=== PATIENT | male | born 1990 | race Hispanic/Latino ===

== ENCOUNTER 2019-04-10 09:43 | Emergency (ER) | payer SELFPAY ==
[2019-04-10 10:12] LABS: Absolute Lymphocytes (CBC) 1.7 K/uL (0.7-4.9); Basophils % 0.5 % (0-1.3); Hematocrit 40.1 % (39.6-49.0); Lymphocytes % 17.9 % (15.3-44.8); MPV 9.4 fL (7.6-11.3)
[2019-04-10] MEDS ORDERED: MORPHINE 4 MG/ML SYR ONE (10:13)
[2019-04-10] MEDS ORDERED: ONDANSETRON 4 MG/2 ML VIAL ONE (10:13)
[2019-04-10] MEDS ORDERED: NA CHLORIDE 0.9% 1,000 ML ONE (10:13)
[2019-04-10 10:29] LABS: Albumin 3.7 g/dL (3.4-5.0); Bilirubin Direct 0.2 mg/dL (0-0.2); Bilirubin Total 0.4 mg/dL (0.2-1.0); Potassium 3.7 mmol/L (3.5-5.1)
[2019-04-10 10:58] LABS: Urine Blood NEGATIVE (NEG); Urine Glucose NEGATIVE (NEG); Urine Protein NEGATIVE (NEG); Urine Specific Gravity >1.030 (1.005-1.030)
[2019-04-10] MEDS ORDERED: METOCLOPRAMIDE 10 MG/2mL INJ ONE (11:03)
[2019-04-10] MEDS ORDERED: FENTANYL CITR 100 MCG/2 ML ONE (11:04)
--- NOTE | 2019-04-10 11:06 | RAD REPORT ---
EXAM DESCRIPTION: CTAbdomen Pelvis W Contrast - 04/10/2019 10:54 am CLINICAL HISTORY: Abdominal pain. lower abdominal pain COMPARISON: No comparisons TECHNIQUE: Biphasic CT imaging of the abdomen and pelvis was performed with 100 ml non-ionic IV cont rast. All CT scans are performed using dose optimization technique as appropriate and may include automated exposure control or mA/KV adjustment according to patient size. FINDINGS: The lung bases are clear. The liver, spleen, pancreas, adrenal glands and left kidney are within normal limits. Minimal right-s ided hydronephrosis and hydroureter is seen. Punctate calculus is seen in the urinary bladder adjacen t to the right UVJ measuring 2 mm. No bowel obstruction, free air, free fluid or abscess. The appendix is normal. The cecum is position ed in the left lower abdomen. No evidence of significant lymphadenopathy. No suspicious bony findings. IMPRESSION: 2 mm calculus within the urinary bladder adjacent to the right UVJ likely recently passe d from the right system, where minimal residual hydronephrosis is noted.
[2019-04-10] MEDS ORDERED: KETOROLAC 30 MG/ML INJ ONE (11:20)
--- NOTE | 2019-04-10 12:32 | ER ---
Nurse's Notes [facility] Name: Silas Shabazz Age: 29 yrs Sex: Male : 1990 Arrival Date: 04/10/2019 Time: 09:45 Bed 14 Private MD: Diagnosis: Calculus of ureter Presentation: 04/10 09:54 Presenting complaint: Patient states: i have a pain that started in my LOWER RIGHT side iw of my stomach started about 8 am, feels bloated like something is trapped in there, no N/V/D. Presenting complaint: Patient states: i had a vasectomy in January, but this pain goes down into my testicles. Transition of care: patient was not received from another setting of care. Onset of symptoms was April 10, 2019. Risk Assessment: Do you want to hurt yourself or someone else? Patient reports no desire to harm self or others. Initial Sepsis Screen: Does the patient meet any 2 criteria? No. Patient's initial sepsis screen is negative. Does the patient have a suspected source of infection? No. Patient's initial sepsis screen is negative. Care prior to arrival: None. 09:54 Method Of Arrival: Ambulatory iw 09:54 Acuity: IZABELA 3 iw Triage Assessment: 09:56 General: Appears uncomfortable, obese, Behavior is calm, cooperative, appropriate for iw age. Pain: Complains of pain in abdomen. GI: Reports lower abdominal pain, bloating. Historical: - Allergies: 09:57 No Known Allergies; iw - Home Meds: 09:57 None [Active]; iw - PMHx: 09:57 None; iw - PSHx: 09:57 Vasectomy; iw - Immunization history:: Adult Immunizations. - Coronavirus screen:: The patient has NOT traveled to [place], [place], or [place] in the past 14 days. - Social history:: Smoking status: . - Ebola Screening: : Patient denies travel to an Ebola-affected area in the 21 days before illness onset. Screenin:02 Abuse screen: Denies threats or abuse. Denies injuries from another. Nutritional ca1 screening: No deficits noted. Tuberculosis screening: No symptoms or risk factors identified. Fall Risk IV access (20 points). Assessment: 10:02 General: Appears in no apparent distress. uncomfortable, Behavior is calm, cooperative, ca1 appropriate for age. Pain: Complains of pain in anterior aspect of right lateral abdomen and posterior aspect of right lateral abdomen Pain radiates to right testicle Pain currently is 10 out of 10 on a pain scale. Quality of pain is described as crampy, Pain began 2 hours ago. Is continuous, Noted to be grimacing, moaning. Neuro: Level of Consciousness is awake, alert, obeys commands, Oriented to person, place, time, situation, Appropriate for age. Cardiovascular: Heart tones S1 S2 present Capillary refill < 3 seconds Patient's skin is warm and dry. Respiratory: Airway is patent Respiratory effort is even, unlabored, Respiratory pattern is regular, symmetrical, Breath sounds are clear bilaterally. GI: Abdomen is round non-distended, Bowel sounds present X 4 quads. Abd is soft X 4 quads Abdomen is tender to palpation in right upper quadrant and right lower quadrant Reports nausea. : No deficits noted. No signs and/or symptoms were reported regarding the genitourinary system. EENT: No deficits noted. No signs and/or symptoms were reported regarding the EENT system. Derm: Skin is intact, is healthy with good turgor, Skin is pink, warm \T\ dry. Musculoskeletal: Circulation, motion, and sensation intact. Capillary refill < 3 seconds. 11:18 Reassessment: Patient appears in no apparent distress at this time. Patient and/or ca1 family updated on plan of care and expected duration. Pain level reassessed. Patient is alert, oriented x 3, equal unlabored respirations, skin warm/dry/pink. 12:28 Reassessment: Patient appears in no apparent distress at this time. Patient and/or ca1 family updated on plan of care and expected duration. Pain level reassessed. Patient is alert, oriented x 3, equal unlabored respirations, skin warm/dry/pink. 12:31 Reassessment: Patient states feeling better. General: Appears in no apparent distress. ca1 comfortable. Vital Signs: 09:57 BP 132 / 115; Pulse 81; Resp 17; Temp 97.2(TE); Pulse Ox 95% on R/A; Weight 147.42 kg iw (R); Height 5 ft. 7 in. (170.18 cm); Pain 10/10; 11:18 BP 126 / 77; Pulse 88; Resp 17 S; Pulse Ox 96% on R/A; ca1 12:28 BP 120 / 75; Pulse 85; Resp 17 S; Pulse Ox 99% on R/A; Pain 4/10; ca1 09:57 Body Mass Index 50.90 (147.42 kg, 170.18 cm) iw ED Course: 09:45 Patient arrived in ED. rg4 09:56 Triage completed. iw 09:56 Arm band placed on. iw 09:58 Lianet Hobbs, HAKAN is Primary Nurse. ca1 09:58 Vinnie Lees PA is PHCP. jmm 09:58 Mynor Aguirre MD is Attending Physician. jmm 10:02 Patient has correct armband on for positive identification. Bed in low position. Call ca1 light in reach. Side rails up X 1. Pulse ox on. NIBP on. 10:07 No provider procedures requiring assistance completed. Initial lab(s) drawn, by me, ca1 sent to lab. Inserted saline lock: 20 gauge in right antecubital area, using aseptic technique. Blood collected. 10:54 CT Abd/Pelvis - IV Contrast Only In Process Unspecified. EDMS 12:31 Elizabeth Nova MD is Referral Physician. jmm 12:51 IV discontinued, intact, bleeding controlled, No redness/swelling at site. Pressure ca1 dressing applied. Administered Medications: 10:08 Drug: NS 0.9% 1000 ml Route: IV; Rate: 1 bolus; Site: right antecubital; ca1 11:30 Follow up: Urine output 1000 ml; Response: No adverse reaction; IV Status: Completed ca1 infusion 10:09 Drug: Zofran 4 mg Route: IVP; Site: right antecubital; ca1 10:55 Follow up: Response: No adverse reaction; Nausea unchanged ca1 10:11 Drug: morphine 4 mg {Note: RASS - 0.} Route: IVP; Site: right antecubital; ca1 10:55 Follow up: Response: No adverse reaction; Pain is unchanged, physician notified; RASS: ca1 Alert and Calm (0) 11:01 Drug: fentaNYL (PF) 50 mcg {Note: RASS - 0.} Route: IVP; Site: right antecubital; ca1 12:29 Follow up: Response: No adverse reaction; Pain is decreased; RASS: Alert and Calm (0) ca1 11:05 Drug: Reglan 10 mg Route: IVP; Site: right antecubital; ca1 12:29 Follow up: Response: No adverse reaction; Pain is decreased; RASS: Alert and Calm (0) ca1 11:17 Drug: Ketorolac 30 mg Route: IVP; Site: right antecubital; ca1 12:30 Follow up: Response: No adverse reaction; Pain is decreased ca1 Output: 11:30 Urine: 1000ml; Total: 1000ml. ca1 Outcome: 12:31 Discharge ordered by MD. salvador 12:51 Discharged to home ambulatory, with significant other. ca1 12:51 Condition: stable 12:51 Discharge instructions given to patient, Instructed on discharge instructions, follow up and referral plans. medication usage, Demonstrated understanding of instructions, follow-up care, medications, Prescriptions given X 2. 12:52 Patient left the ED. ca1 Signatures: Dispatcher [employer] EDMS Vinnie Lees PA PA jmm Williams, Irene, RN RN iw Iliana Betancourt RN RN tw2 Lou Solo 4 Lianet Hobbs RN RN ca1 Corrections: (The following items were deleted from the chart) 10:00 09:54 Presenting complaint: Patient states: i have a pain that started in my LOWER tw2 RIGHT side of my stomach started about 8 am, feels bloated like something is trapped in there, no N/V/D iw 10:00 09:54 Presenting complaint: Patient states: i had a vasectomy in January, but this tw2 pain goes down into my testicles. iw 12:32 12:28 BP 120 / 75; Pulse 85bpm; Resp 17bpm; Spontaneous; Pulse Ox 99% RA; ca1 ca1
--- NOTE | 2019-04-10 12:32 | EDPHYS ---
Physician Documentation [facility] Name: Silas Shabazz Age: 29 yrs Sex: Male : 1990 Arrival Date: 04/10/2019 Time: 09:45 Bed 14 Private MD: ED Physician Mynor Aguirre HPI: 04/10 10:25 This 29 yrs old Male presents to ER via Ambulatory with complaints of jmm Abdominal Pain. 10:25 The patient presents with abdominal pain right lower quadrant. Onset: The jmm symptoms/episode began/occurred acutely, this morning. The symptoms radiate to pelvis. The symptoms are described as achy, intermittent. Modifying factors: The symptoms are alleviated by nothing, the symptoms are aggravated by nothing. This is a 29 year old male with no chronic medical conditions that presents to the ED with complaints of right sided abdominal radiating into his groin. Symptoms began this morning. Denies fever. . Historical: - Allergies: 09:57 No Known Allergies; iw - Home Meds: 09:57 None [Active]; iw - PMHx: 09:57 None; iw - PSHx: 09:57 Vasectomy; iw - Immunization history:: Adult Immunizations. - Coronavirus screen:: The patient has NOT traveled to [place], [place], or [place] in the past 14 days. - Social history:: Smoking status: . - Ebola Screening: : Patient denies travel to an Ebola-affected area in the 21 days before illness onset. ROS: 10:25 Constitutional: Negative for fever, chills, and weight loss, Cardiovascular: Negative jmm for chest pain, palpitations, and edema, Respiratory: Negative for shortness of breath, cough, wheezing, and pleuritic chest pain. 10:25 Abdomen/GI: Positive for abdominal pain. 10:25 All other systems are negative. Exam: 10:25 Head/Face: atraumatic. Eyes: EOMI, no conjunctival erythema appreciated ENT: Moist jmm Mucus Membranes Neck: Trachea midline, Supple Chest/axilla: Normal chest wall appearance and motion. Cardiovascular: Regular rate and rhythm. No edema appreciated Respiratory: Normal respirations, no respiratory distress appreciated 10:25 Back: Normal ROM Skin: General appearance color normal MS/ Extremity: Moves all extremities, no obvious deformities appreciated, no edema noted to the lower extremities Neuro: Awake and alert, normal gait Psych: Behavior is normal, Mood is normal, Patient is cooperative and pleasant 10:25 Constitutional: The patient appears alert, awake, in obvious pain. 10:25 Abdomen/GI: Inspection: abdomen appears normal, Bowel sounds: normal, Palpation: soft, moderate abdominal tenderness, in the right lower quadrant. Vital Signs: 09:57 BP 132 / 115; Pulse 81; Resp 17; Temp 97.2(TE); Pulse Ox 95% on R/A; Weight 147.42 kg iw (R); Height 5 ft. 7 in. (170.18 cm); Pain 10/10; 11:18 BP 126 / 77; Pulse 88; Resp 17 S; Pulse Ox 96% on R/A; ca1 12:28 BP 120 / 75; Pulse 85; Resp 17 S; Pulse Ox 99% on R/A; Pain 4/10; ca1 09:57 Body Mass Index 50.90 (147.42 kg, 170.18 cm) iw MDM: 09:58 Patient medically screened. [facility] 12:30 Data reviewed: vital signs, nurses notes. Counseling: I had a detailed discussion with madeleine the patient and/or guardian regarding: the historical points, exam findings, and any diagnostic results supporting the discharge/admit diagnosis, lab results, radiology results, the need for outpatient follow up, to return to the emergency department if symptoms worsen or persist or if there are any questions or concerns that arise at home. ED course: Pain relieved in the ED. Patient is otherwise given strict return precautions. Patient understood and agrees with the plan of care. . 04/10 09:58 Order name: Basic Metabolic Panel; Complete Time: 10:29 [facility] 04/10 09:58 Order name: CBC with Diff; Complete Time: 10:23 [facility] 04/10 09:58 Order name: Creatinine for Radiology; Complete Time: 10:29 [facility] 04/10 09:58 Order name: Hepatic Function; Complete Time: 10:29 [facility] 04/10 09:58 Order name: Lipase; Complete Time: 10: [facility] 04/10 10:52 Order name: Urine Dipstick--Ancillary (enter results); Complete Time: 10:59 04/10 09:58 Order name: IV Saline Lock; Complete Time: 10:07 [facility] 04/10 09:58 Order name: CT Abd/Pelvis - IV Contrast Only; Complete Time: 11:07 [facility] 04/10 09:58 Order name: Labs collected and sent; Complete Time: : [facility] 04/10 10:39 Order name: Urine Dipstick-Ancillary (obtain specimen); Complete Time: 10:51 [facility] Administered Medications: 10:08 Drug: NS 0.9% 1000 ml Route: IV; Rate: 1 bolus; Site: right antecubital; ca1 11:30 Follow up: Urine output 1000 ml; Response: No adverse reaction; IV Status: Completed ca1 infusion 10:09 Drug: Zofran 4 mg Route: IVP; Site: right antecubital; ca1 10:55 Follow up: Response: No adverse reaction; Nausea unchanged ca1 10:11 Drug: morphine 4 mg {Note: RASS - 0.} Route: IVP; Site: right antecubital; ca1 10:55 Follow up: Response: No adverse reaction; Pain is unchanged, physician notified; RASS: ca1 Alert and Calm (0) 11:01 Drug: fentaNYL (PF) 50 mcg {Note: RASS - 0.} Route: IVP; Site: right antecubital; ca1 12:29 Follow up: Response: No adverse reaction; Pain is decreased; RASS: Alert and Calm (0) ca1 11:05 Drug: Reglan 10 mg Route: IVP; Site: right antecubital; ca1 12:29 Follow up: Response: No adverse reaction; Pain is decreased; RASS: Alert and Calm (0) ca1 11:17 Drug: Ketorolac 30 mg Route: IVP; Site: right antecubital; ca1 12:30 Follow up: Response: No adverse reaction; Pain is decreased ca1 Disposition: 14:55 Co-signature as Attending Physician, Mynor Aguirre MD I agree with the assessment and [place] plan of care. Disposition: 04/10/19 12:31 Discharged to Home. Impression: Calculus of ureter. - Condition is Stable. - Discharge Instructions: Kidney Stones. - Prescriptions for Zofran ODT 4 mg Oral tablet,disintegrating - place 1 tablet by TRANSLINGUAL route every 4-6 hours; 20 tablet. Ibuprofen 600 mg Oral Tablet - take 1 tablet by ORAL route every 6 hours As needed take with food; 30 tablet. - Medication Reconciliation Form, Thank You Letter, Antibiotic Education, Prescription Opioid Use, Work release form form. - Follow up: Elizabeth Nova MD; When: 2 - 3 days; Reason: Recheck today's complaints, Continuance of care, Re-evaluation by your physician. Signatures: Dispatcher [employer] Mynor Suarez MD MD cha Mickail, Joel, PA PA jmm Williams, Irene, HAKAN RN iw Lianet Hobbs RN RN ca1 Corrections: (The following items were deleted from the chart) 12:52 12:31 04/10/2019 12:31 Discharged to Home. Impression: Calculus of ureter. Condition is ca1 Stable. Forms are Medication Reconciliation Form, Thank You Letter, Antibiotic Education, Prescription Opioid Use. Follow up: Elizabeth Nova; When: 2 - 3 days; Reason: Recheck today's complaints, Continuance of care, Re-evaluation by your physician. madeleine
[2019-04-10 13:18] VITALS: TEMP 97.2
[2019-04-10 13:21] VITALS: BP 120/75; O2SAT 99
== END 2019-04-10 12:52 | disposition home or self-care (01) ==
LOC: ER 09:43
DX: N20.1 Calculus of ureter (principal)
CPT/HCPCS: 36415; 74177; 80048; 80076; 81003; 83690; 85025; 96361; 96374; 96375; 99284; J2405; J2765; J3010; J7030; Q9967